=== PATIENT | female | born 1940 | race Caucasian/White ===

== ENCOUNTER → 2017-02-27 | Outpatient (CLI) | payer MEDICARE ==
--- NOTE | 2017-02-27 15:19 | MR ---
EXAMINATION TYPE: MR lumbar spine wo con DATE OF EXAM: 02/27/2017 COMPARISON: Report from prior lumbar MRI from outside institution dated 2008 HISTORY: Low back pain TECHNIQUE: Multiplanar, multisequence images of the lumbar spine were acquired. L1-L2: Left lateral extension of endplate disc complex results in right-sided foraminal encroachment, anterolateral mass effect on the thecal sac. No significant central stenosis. L2-L3: Mild facet arthropathy. No significant central stenosis or foraminal encroachment. Minimal pos terior broad-based disc bulge causes only slight anterior mass effect on the thecal sac. L3-L4: Broad-based posterior disc bulge causes minimal anterior mass effect on the thecal sac. Facet arthropathy with hypertrophy of the ligamentum flavum encroaches on the lateral recesses. Circumferen tial extension of disc material encroaches somewhat on the foramina. There is a trefoil appearance of the thecal sac. No significant central stenosis. L4-L5: Listhesis contributes to cause some mild anterior mass effect on the thecal sac, there is face t arthropathy with hypertrophy of the ligamentum flavum encroaching on the lateral recesses, foramina l encroachment is greater on the left than on the right. No significant central stenosis. L5-S1: Facet arthropathy changes with hypertrophy of the ligamentum flavum is noted encroaching somew hat on the left lateral recess. Circumferential posterior disc bulge causes minimal anterior mass eff ect on the thecal sac. Circumferential extension of disc material encroaches somewhat on the foramina . Lumbar segments are intact. No paraspinal masses are identified. Conus medullaris has a normal appe arance. Minimal anterolisthesis grade 1 L4-5. There is multilevel spondylosis. Loss of disc height an d signal greatest at L4-5, L1-2. IMPRESSION: Degenerative disc disease, multilevel facet arthropathy and foraminal encroachment as described. No s ignificant central canal stenosis.
== END | disposition home or self-care (01) ==
LOC: RADMRIMAIN 14:05
PROVIDERS: ATTEND Family Medicine
DX: M51.36 Other intervertebral disc degeneration, lumbar region (principal); M12.88 Other specific arthropathies, not elsewhere classified, other specified site
CPT/HCPCS: 72148

== ENCOUNTER 2017-09-27 06:00 | Observation (INO) | payer MEDICARE ==
[2017-09-27] MEDS ORDERED: ASPIRIN 81 MG PO STA (06:05)
[2017-09-27] MEDS ORDERED: MORPHINE SULFATE 4 MG/ML SYRINGE IV PRN (06:05)
[2017-09-27] MEDS ORDERED: NITROGLYCERIN SL TABS 0.4 MG TAB SUBLINGUAL PRN (06:05)
--- NOTE | 2017-09-27 06:14 | ED ---
General Adult HPI <Ramin Michaels Jacqueline - Last Filed: 09/27/17 08:49> - General Source: RN notes reviewed, old records reviewed <Mc Gómez - Last Filed: 09/29/17 06:58> - General Stated complaint: chest pain Time Seen by Provider: 09/27/17 06:02 - History of Present Illness Initial comments: This is a 77-year-old female to the ER for evaluation regarding significant chest pain left-sided sharp chest pain rating to her back. Patient has pain on and off for 3 days, patient states chest pain with severe tonight and decided to come to the emergency room. Patient is in route to [facility] where she went to get checked out today as opposed earlier. No shortness of breath, patient does have no chest pain at this time (Mc Gómez) - Related Data Home Medications Medication Instructions Recorded Confirmed Cyanocobalamin (Vitamin B-12) 1,000 mcg PO PC-LUNCH 09/27/17 09/27/17 [Vitamin B-12] Diltiazem HCl [Diltiazem 24Hr ER] 180 mg PO DAILY 09/27/17 09/27/17 HYDROcodone/APAP 5-325MG [[place] 0.5 tab PO HS PRN 09/27/17 09/27/17 5-325] Isosorbide Mononitrate ER [Imdur] 30 mg PO AC-BRKFST 09/27/17 09/27/17 Lisinopril [Prinivil] 20 mg PO DAILY 09/27/17 09/27/17 Lovastatin [Mevacor] 20 mg PO HS 09/27/17 09/27/17 Magnesium 200 mg PO HS 09/27/17 09/27/17 Nepafenac [Ilevro] 1 drop LEFT EYE QAM 09/27/17 09/27/17 Nitroglycerin Sl Tabs [Nitrostat] 0.4 mg SUBLINGUAL Q5M PRN 09/27/17 09/27/17 Ofloxacin 0.3% Ophth Soln [Ocuflox 1 drop LEFT EYE TID 09/27/17 09/27/17 Ophth Soln] cloNIDine HCL [Catapres] 0.1 mg PO DAILY 09/27/17 09/27/17 Previous Rx's Medication Instructions Recorded Aspirin 325 mg PO DAILY tab 09/28/17 Levofloxacin [Levaquin] 500 mg PO DAILY 10 Days #10 tab 09/28/17 Metoprolol Tartrate [Lopressor] 25 mg PO BID tab 09/28/17 guaiFENesin [Mucinex] 600 mg PO Q12HR 10 Days #20 09/28/17 tablet.er Allergies Allergy/AdvReac Type Severity Reaction Status Date / Time erythromycin base Allergy Rash/Hives Verified 09/27/17 07:37 meclizine Allergy Rash/Hives Verified 09/27/17 07:37 Review of Systems ROS Other: All systems not noted in ROS Statement are negative. <Ramin Michaels - Last Filed: 09/27/17 08:49> ROS Other: All systems not noted in ROS Statement are negative. <Mc Gómez - Last Filed: 09/29/17 06:58> ROS Statement: Those systems with pertinent positive or pertinent negative responses have been documented in the HPI. Past Medical History Past Medical History: Hyperlipidemia, Hypertension, Neurologic Disorder, Osteoarthritis (OA) Additional Past Medical History / Comment(s): pvc 's murmur lbbb cardiomyopathy atheroscleroris History of Any Multi-Drug Resistant Organisms: None Reported Past Surgical History: Adenoidectomy, Appendectomy, Cholecystectomy, Hysterectomy, Joint Replacement, Orthopedic Surgery, Tonsillectomy Additional Past Surgical History / Comment(s): lapband Past Psychological History: No Psychological Hx Reported Smoking Status: Never smoker Past Alcohol Use History: None Reported Past Drug Use History: None Reported - Past Family History Father Family Medical History: Cancer Additional Family Medical History / Comment(s): Father had lymphosarcoma Mother Family Medical History: Coronary Artery Disease (CAD), Myocardial Infarction (AR ) Additional Family Medical History / Comment(s): Mother of a AR at the age of 66yrs. <Mc Gómez - Last Filed: 09/29/17 06:58> General Exam General appearance: alert, in no apparent distress Head exam: Present: atraumatic, normocephalic, normal inspection Eye exam: Present: normal appearance, PERRL, EOMI. Absent: scleral icterus, conjunctival injection, periorbital swelling ENT exam: Present: normal exam, mucous membranes moist Neck exam: Present: normal inspection. Absent: tenderness, meningismus, lymphadenopathy Respiratory exam: Present: normal lung sounds bilaterally. Absent: respiratory distress, wheezes, rales, rhonchi, stridor Cardiovascular Exam: Present: regular rate, normal rhythm, normal heart sounds. Absent: systolic murmur, diastolic murmur, rubs, gallop, clicks GI/Abdominal exam: Present: soft, normal bowel sounds. Absent: distended, tenderness, guarding, rebound, rigid Extremities exam: Present: normal inspection, full ROM, normal capillary refill. Absent: tenderness, pedal edema, joint swelling, calf tenderness Back exam: Present: normal inspection Neurological exam: Present: alert, oriented X3, CN II-XII intact Psychiatric exam: Present: normal affect, normal mood Skin exam: Present: warm, dry, intact, normal color. Absent: rash <Mc Gómez - Last Filed: 09/29/17 06:58> Vital Signs 09/27/17 09/27/17 09/27/17 06:13 06:30 06:37 Temperature 99.3 F Pulse Rate 89 88 Respiratory 18 20 Rate Blood Pressure 210/100 190/78 165/72 O2 Sat by Pulse 97 95 Oximetry 09/27/17 09/27/17 06:40 08:00 Temperature 98.1 F Pulse Rate 74 Respiratory 20 16 Rate Blood Pressure 158/69 O2 Sat by Pulse 95 Oximetry EKG Findings - EKG Comments: EKG Findings:: EKG shows sinus rhythm rate of 84, VA 164, QRS 132, QTc 482 <Mc Gómez - Last Filed: 09/29/17 06:58> Medical Decision Making - Lab Data Result diagrams: 09/27/17 06:10 09/27/17 06:10 <Ramin Michaels - Last Filed: 09/27/17 08:49> - Lab Data Result diagrams: 09/28/17 05:24 09/28/17 05:24 <Mc Gómez - Last Filed: 09/29/17 06:58> - Medical Decision Making 77-year-old female presenting with chest pain. Patient was signed out awaiting CT angiography. Patient was admitted for serial cardiac enzymes and cardiology consult. CT angiography is negative for PE or dissection, there is right lower lobe pneumonia. Patient does admit to cough. Antibiotics ordered. Initial presentation, patient is quite hypertensive, this does resolve with medical treatment. (Ramin Michaels) Disposition Decision to Admit Reason: Admit from EC Decision Date: 09/27/17 Decision Time: 08:00 <Ramin Michaels - Last Filed: 09/27/17 08:49> <Mc Gómez - Last Filed: 09/29/17 06:58> Clinical Impression: Healthcare-associated pneumonia, Chest pain Disposition: ADMITTED IP TO THIS HOSP Condition: Stable
[2017-09-27] MEDS ORDERED: MORPHINE SULFATE 4 MG/ML SYRINGE IVP STA (06:18)
[2017-09-27] MEDS ORDERED: LABETALOL 5 MG/ML VIAL MDV IVP STA (06:18)
[2017-09-27 06:24] LABS: Basophils # (A) 0.1 k/uL (0-0.2); Basophils % (A) 1 %; Eosinophils # (A) 0.1 k/uL (0-0.7); Eosinophils % (A) 1 %; HCT 42.9 % (34.0-46.0); HGB 15.1 gm/dL (11.4-16.0); Lymphocytes # (A) 0.9 k/uL (1.0-4.8); Lymphocytes % (A) 11 %; MCH 29.7 pg (25.0-35.0); MCHC 35.2 g/dL (31.0-37.0); MCV 84.2 fL (80.0-100.0); Mean Platelet Volume 6.7; Monocytes # (A) 0.6 k/uL (0-1.0); Monocytes % (A) 7 %; Neutrophils # (A) 6.6 k/uL (1.3-7.7); Neutrophils % (A) 78 %; Platelet Count 260 k/uL (150-450); RBC 5.09 m/uL (3.80-5.40); RDW 12.8 % (11.5-15.5); WBC 8.5 k/uL (3.8-10.6)
[2017-09-27] MEDS ORDERED: ONDANSETRON 4 MG/2 ML VIAL IVP STA (06:26)
[2017-09-27] MEDS ORDERED: RX INFO: IV CONTRAST WAS GIVEN 1 EACH MISC MISCELLANE PRN (06:31)
[2017-09-27 06:32] LABS: D-Dimer 0.62 mg/L FEU (<0.60)
[2017-09-27 06:36] LABS: ALT 19 U/L (9-52); AST 23 U/L (14-36); Alkaline Phosphatase 72 U/L (38-126); Anion Gap 10 mmol/L; Blood Urea Nitrogen 16 mg/dL (7-17); Calcium 9.2 mg/dL (8.4-10.2); Carbon Dioxide 24 mmol/L (22-30); Chloride 104 mmol/L (98-107); Glucose 117 mg/dL (74-99); Lipase 82 U/L (23-300); Magnesium 1.8 mg/dL (1.6-2.3); Potassium 4.2 mmol/L (3.5-5.1); Sodium 138 mmol/L (137-145); Total Bilirubin 0.6 mg/dL (0.2-1.3); Total Protein 6.5 g/dL (6.3-8.2)
[2017-09-27 06:37] LABS: INR 1.1 (<1.2); Partial Thromboplastin Time 22.6 sec (22.0-30.0); Prothrombin Time 10.3 sec (9.0-12.0)
[2017-09-27 07:00] LABS: Creatine Kinase MB 1.2 ng/mL (0.0-2.4); Troponin I 0.032 ng/mL (0.000-0.034)
--- NOTE | 2017-09-27 07:42 | CT ---
EXAMINATION TYPE: CT angio chest DATE OF EXAM: 09/27/2017 COMPARISON: 01/05/2010 HISTORY: Chest pain CT DLP: 326.6 mGycm. Automated Exposure Control for Dose Reduction was Utilized. CONTRAST: CTA scan of the thorax is performed with IV Contrast, patient injected with 78 mL of Omnipaque 350, p ulmonary embolism protocol. MIP Images are created on CT scanner and reviewed. FINDINGS: LUNGS: There are scattered areas of subsegmental atelectasis and multiple other nodular densities wit hin the posterior basilar segment of the right lower lobe suspicious for early infectious etiology melissa ch as pneumonia. The lungs are grossly clear, there is no concerning parenchymal mass or nodule ident ified. There is no pleural effusion or pneumothorax seen. The tracheobronchial tree is patent. MEDIASTINUM: There is satisfactory enhancement of the pulmonary artery and its branches, there is no CT evidence for pulmonary embolism. Mediastinal adenopathy is seen within the right hilum measuring 1 .2 cm, within the subcarinal space measuring 1.5 cm, and within the, paratracheal space measuring 1.2 cm. No cardiomegaly or pericardial effusion is seen. Normal variant branching vasculature are seen a s the left vertebral artery has a direct origin from the aortic arch. Moderate three-vessel coronary artery calcifications are present. OTHER: Gastric lap band is noted in the upper abdomen, bile duct appears prominent although within no rmal limits given the patient's age. Moderate multilevel degenerative changes of the thoracic spine a re seen. IMPRESSION: 1. No evidence of pulmonary embolism. 2. Clustered nodular densities within the posterior basilar segment of the right lower lobe are most suspicious for developing pneumonia although multiple pulmonary nodules are possible they are less li alison. Follow-up after treatment could be performed to exclude pulmonary nodule. Associated mediastina l adenopathy is likely reactive and only slightly more pronounced than on the prior exam of 2009.
[2017-09-27] MEDS ORDERED: LEVOFLOXACIN 500MG-D5W PMX 500 MG in DEXTROSE/WATER 1 100ML.BAG IVPB STA (08:27)
--- NOTE | 2017-09-27 09:59 | P.CRDCN ---
History of Present Illness Consult date: 09/27/17 History of present illness: This is a 77-year-old female with history of hypertension and hypercholesterolemia who has been suffering from sore throat and cough for about a couple weeks. Patient came to the hospital because of persistent cough and also feeling hot. She also complains of some chest heaviness in the middle of the chest. She claims that heaviness did not change with cough or inspiration. She took couple of nitroglycerin at home without much relief. Finally patient came to the emergency room. Her d-dimer was elevated. Patient had a computed tomography scan of the chest which was negative for pulmonary emboli or dissection. However, there was findings consistent with possible pneumonia. Patient is admitted and is being treated for pneumonia with antibiotics. At the time of my examination patient seemed to be feeling better. Denies any chest pain at this time. Patient recently had a stress test and echocardiogram in our office and we're in the process of getting copies of the. I will also get a chest x-ray. If pneumonia is confirmed, I'll continue with antibiotic therapy. Probably no further cardiac workup at this time unless patient has recurrence of symptoms. Past Medical History Past Medical History: Hyperlipidemia, Hypertension, Neurologic Disorder, Osteoarthritis (OA) Additional Past Medical History / Comment(s): pvc 's murmur lbbb cardiomyopathy atheroscleroris History of Any Multi-Drug Resistant Organisms: None Reported Past Surgical History: Adenoidectomy, Appendectomy, Cholecystectomy, Hysterectomy, Joint Replacement, Orthopedic Surgery, Tonsillectomy Additional Past Surgical History / Comment(s): lapband Past Psychological History: No Psychological Hx Reported Smoking Status: Never smoker Past Alcohol Use History: None Reported Past Drug Use History: None Reported Medications and Allergies Home Medications Medication Instructions Recorded Confirmed Type Cyanocobalamin (Vitamin B-12) 1,000 mcg PO PC-LUNCH 09/27/17 09/27/17 History [Vitamin B-12] Diltiazem HCl [Diltiazem 24Hr ER] 180 mg PO DAILY 09/27/17 09/27/17 History HYDROcodone/APAP 5-325MG [[place] 0.5 tab PO HS PRN 09/27/17 09/27/17 History 5-325] Isosorbide Mononitrate ER [Imdur] 30 mg PO AC-BRKFST 09/27/17 09/27/17 History Lisinopril [Prinivil] 20 mg PO DAILY 09/27/17 09/27/17 History Lovastatin [Mevacor] 20 mg PO HS 09/27/17 09/27/17 History Magnesium 200 mg PO HS 09/27/17 09/27/17 History Nepafenac [Ilevro] 1 drop LEFT EYE QAM 09/27/17 09/27/17 History Nitroglycerin Sl Tabs [Nitrostat] 0.4 mg SUBLINGUAL Q5M PRN 09/27/17 09/27/17 History Ofloxacin 0.3% Ophth Soln [Ocuflox 1 drop LEFT EYE TID 09/27/17 09/27/17 History Ophth Soln] cloNIDine HCL [Catapres] 0.1 mg PO DAILY 09/27/17 09/27/17 History Allergies Allergy/AdvReac Type Severity Reaction Status Date / Time erythromycin base Allergy Rash/Hives Verified 09/27/17 07:37 meclizine Allergy Rash/Hives Verified 09/27/17 07:37 Physical Exam Vitals: Vital Signs Temp Pulse Resp BP BP Pulse Ox 09/27/17 09:01 98.2 F 142/58 91 L 09/27/17 08:00 98.1 F 74 16 158/69 95 09/27/17 06:40 20 09/27/17 06:37 165/72 09/27/17 06:30 88 20 190/78 95 09/27/17 06:13 99.3 F 89 18 210/100 97 Intake and Output 09/26/17 09/27/17 09/27/17 22:59 06:59 14:59 Other: Weight 77.111 kg GENERAL EXAM: Patient is alert and oriented and doesn't appear to be in any acute distress HEENT: Normocephalic. Normal reaction of pupils, equal size, normal range of extraocular motion. No erythema or exudates in the throat. NECK: No masses, no nuchal rigidity. CHEST: No chest wall deformity. LUNGS: Equal air entry with no crackles or wheeze. HEART: S1 and S2 normal with no audible mumurs or gallops. Regular rhythm, ABDOMEN: No hepatosplenomegaly, normal bowel sounds, no guarding or rigidity. SKIN: No rashes CENTRAL NERVOUS SYSTEM: No focal deficits. EXTREMITIES: No cyanosis, clubbing or edema. Results 09/27/17 06:10 09/27/17 06:10 Cardiac Enzymes 09/27/17 09/27/17 Range/Units 06:10 06:10 AST 23 (14-36) U/L CK-MB (CK-2) 1.2 (0.0-2.4) ng/mL Troponin I 0.032 (0.000-0.034) ng/mL Coagulation 09/27/17 Range/Units 06:10 PT 10.3 (9.0-12.0) sec APTT 22.6 (22.0-30.0) sec CBC 09/27/17 Range/Units 06:10 WBC 8.5 (3.8-10.6) k/uL RBC 5.09 (3.80-5.40) m/uL Hgb 15.1 (11.4-16.0) gm/dL Hct 42.9 (34.0-46.0) % Plt Count 260 (150-450) k/uL Comprehensive Metabolic Panel 09/27/17 Range/Units 06:10 Sodium 138 (137-145) mmol/L Potassium 4.2 (3.5-5.1) mmol/L Chloride 104 (98-107) mmol/L Carbon Dioxide 24 (22-30) mmol/L BUN 16 (7-17) mg/dL Creatinine 0.60 (0.52-1.04) mg/dL Glucose 117 H (74-99) mg/dL Calcium 9.2 (8.4-10.2) mg/dL AST 23 (14-36) U/L ALT 19 (9-52) U/L Alkaline Phosphatase 72 (38-126) U/L Total Protein 6.5 (6.3-8.2) g/dL Albumin 4.0 (3.5-5.0) g/dL Current Medications Generic Name Dose Route Start Last Admin Trade Name Freq PRN Reason Stop Dose Admin Aspirin 325 mg 09/28/17 09:00 Aspirin PO DAILY [facility] Atorvastatin Calcium 80 mg 09/27/17 09:00 Lipitor PO DAILY [facility] Levofloxacin 500 mg/ IV 100 mls @ 100 mls/hr 09/28/17 09:00 Solution IVPB Q24H [facility] Metoprolol Tartrate 25 mg 09/27/17 09:00 Lopressor PO BID [facility] Miscellaneous Information 1 each 09/27/17 06:31 Rx Info: Iv Contrast Was Given MISCELLANE 09/29/17 06:31 DAILY PRN Per Protocol Morphine Sulfate 4 mg 09/27/17 06:05 Morphine Sulfate (Inj) IV Q5M PRN Chest Pain Nitroglycerin 0.4 mg 09/27/17 06:05 Nitrostat SUBLINGUAL Q5M PRN Chest Pain Intake and Output 09/26/17 09/27/17 09/27/17 22:59 06:59 14:59 Other: Weight 77.111 kg 09/27/17 06:10 09/27/17 06:10 EKG Interpretations (text) Sinus rhythm with left bundle-branch block pattern Assessment and Plan (1) Left bundle branch block (LBBB) Current Visit: Yes Status: Acute Code(s): I44.7 - LEFT BUNDLE-BRANCH BLOCK, UNSPECIFIED SNOMED Code(s): 34412942 (2) Chest pain Current Visit: Yes Status: Acute Code(s): R07.9 - CHEST PAIN, UNSPECIFIED SNOMED Code(s): 63172888 (3) Healthcare-associated pneumonia Current Visit: Yes Status: Acute Code(s): J18.9 - PNEUMONIA, UNSPECIFIED ORGANISM SNOMED Code(s): 803527312 Plan: I'll continue with antibiotic therapy. I'll get a chest x-ray. I'll get the recent cardiac testing done in our office. Further recommendations depend upon clinical course.
[2017-09-27] MEDS ORDERED: cloNIDine HCL 0.1 MG TAB PO SCH ×2 (11:00→14:51)
[2017-09-27] MEDS: OFLOXACIN 0.3% OPHTH DROPS 5 ML BOTTLE LEFT EYE SCH ×3 (11:46→19:56)
[2017-09-27] MEDS: DILTIAZEM CD 180 MG CAP.ER.24H PO SCH (12:07)
[2017-09-27] MEDS: LISINOPRIL 20 MG TAB PO SCH (12:07)
[2017-09-27] MEDS: ISOSORBIDE MONONITRATE ER 30 MG TAB.ER.24H PO SCH (12:07)
[2017-09-27] MEDS: METOPROLOL TARTRATE 25 MG TAB PO SCH ×3 (12:13→20:02)
[2017-09-27] MEDS ORDERED: CYANOCOBALAMIN 500 MCG TAB PO SCH (13:30)
[2017-09-27 13:48] LABS: Troponin I 0.037 ng/mL (0.000-0.034)
[2017-09-27] MEDS: ATORVASTATIN 80 MG TAB PO SCH (14:23)
--- NOTE | 2017-09-27 15:05 | P.HPIM ---
History of Present Illness H&P Date: 09/27/17 Chief Complaint: Chest pressure and cough This is a 77-year-old female, patient of Dr. Fernandez. She has a known past medical history of hypertension, hyperlipidemia, cardiomyopathy, left bundle branch block, PVCs and heart murmur. She reports about a 4 day history of productive cough. She states that her cough is showing some improvement. However, this morning she started to have a lot of chest pressure in the center of her chest. It did not radiate. But she did become nauseous and had some sweating. She took 2 nitro and had some relief of her symptoms. The pain did come back. She presented to the emergency room for further evaluation and treatment. She had elevated blood pressure with a 210/100. EKG had shown normal sinus rhythm with sinus arrhythmia. First troponin was negative second troponin minimally elevated at 0.037. She did have elevated d-dimer CTA of the chest was negative for PE. Did show clustered nodular densities within the posterior basilar segment of the right lower lobe are most suspicious of a developing pneumonia although multiple pulmonary nodules are possible they're less likely. Follow-up after treatment could be performed to exclude pulmonary nodule. Associated mediastinal adenopathy is likely reactive and only slightly more pronounced than prior exam of 2009. Patient was started on IV Levaquin. Her last stress test was about 5 months ago and at that time she had an echo completed outpatient [facility]. Cardiology is following and they are reviewing these results. Patient reports her last heart catheterization was in 2009. She does have a prior history of smoking for only about 4 years. Pulmonary service will be consulted Review of Systems Please refer to HPI otherwise unremarkable Past Medical History Past Medical History: Hyperlipidemia, Hypertension, Neurologic Disorder, Osteoarthritis (OA) Additional Past Medical History / Comment(s): pvc 's murmur lbbb cardiomyopathy atheroscleroris History of Any Multi-Drug Resistant Organisms: None Reported Past Surgical History: Adenoidectomy, Appendectomy, Cholecystectomy, Hysterectomy, Joint Replacement, Orthopedic Surgery, Tonsillectomy Additional Past Surgical History / Comment(s): lapband Past Anesthesia/Blood Transfusion Reactions: Postoperative Nausea & Vomiting ( PONV) Past Psychological History: No Psychological Hx Reported Smoking Status: Never smoker Past Alcohol Use History: None Reported Past Drug Use History: None Reported - Past Family History Father Family Medical History: Cancer Additional Family Medical History / Comment(s): Father had lymphosarcoma Mother Family Medical History: Coronary Artery Disease (CAD), Myocardial Infarction (HI ) Additional Family Medical History / Comment(s): Mother of a HI at the age of 66yrs. Medications and Allergies Home Medications Medication Instructions Recorded Confirmed Type Cyanocobalamin (Vitamin B-12) 1,000 mcg PO PC-LUNCH 09/27/17 09/27/17 History [Vitamin B-12] Diltiazem HCl [Diltiazem 24Hr ER] 180 mg PO DAILY 09/27/17 09/27/17 History HYDROcodone/APAP 5-325MG [[place] 0.5 tab PO HS PRN 09/27/17 09/27/17 History 5-325] Isosorbide Mononitrate ER [Imdur] 30 mg PO AC-BRKFST 09/27/17 09/27/17 History Lisinopril [Prinivil] 20 mg PO DAILY 09/27/17 09/27/17 History Lovastatin [Mevacor] 20 mg PO HS 09/27/17 09/27/17 History Magnesium 200 mg PO HS 09/27/17 09/27/17 History Nepafenac [Ilevro] 1 drop LEFT EYE QAM 09/27/17 09/27/17 History Nitroglycerin Sl Tabs [Nitrostat] 0.4 mg SUBLINGUAL Q5M PRN 09/27/17 09/27/17 History Ofloxacin 0.3% Ophth Soln [Ocuflox 1 drop LEFT EYE TID 09/27/17 09/27/17 History Ophth Soln] cloNIDine HCL [Catapres] 0.1 mg PO DAILY 09/27/17 09/27/17 History Allergies Allergy/AdvReac Type Severity Reaction Status Date / Time erythromycin base Allergy Rash/Hives Verified 09/27/17 07:37 meclizine Allergy Rash/Hives Verified 09/27/17 07:37 Physical Exam Vitals: Vital Signs Temp Pulse Pulse Resp BP BP BP 09/27/17 11:52 99.3 F 73 16 188/63 09/27/17 09:01 98.2 F 142/58 09/27/17 08:00 98.1 F 74 16 158/69 09/27/17 06:40 20 09/27/17 06:37 165/72 09/27/17 06:30 88 20 190/78 09/27/17 06:13 99.3 F 89 18 210/100 Pulse Ox 09/27/17 11:52 93 L 09/27/17 09:01 91 L 09/27/17 08:00 95 09/27/17 06:40 09/27/17 06:37 09/27/17 06:30 95 09/27/17 06:13 97 Intake and Output 09/26/17 09/27/17 09/27/17 22:59 06:59 14:59 Other: Weight 77.111 kg Head normocephalic Neck supple Lungs diminished with a few coarse breath sounds. No wheezing. No tenderness with palpation of the chest wall Heart regular rate and rhythm S1-S2, no rub or gallop Abdomen is soft nontender nondistended positive bowel sounds no hepatosplenomegaly Extremities no edema Neuro alert and orientated to 3 Results CBC & Chem 7: 09/27/17 06:10 09/27/17 06:10 Labs: Abnormal Lab Results - Last 24 Hours (Table) 09/27/17 09/27/17 09/27/17 Range/Units 06:10 06:10 06:10 Lymphocytes # 0.9 L (1.0-4.8) k/uL D-Dimer 0.62 H (<0.60) mg/L FEU Glucose 117 H (74-99) mg/dL Troponin I (0.000-0.034) ng/mL 09/27/17 Range/Units 12:21 Lymphocytes # (1.0-4.8) k/uL D-Dimer (<0.60) mg/L FEU Glucose (74-99) mg/dL Troponin I 0.037 H* (0.000-0.034) ng/mL Thrombosis Risk Factor Assmnt - Choose All That Apply Any of the Below Risk Factors Present?: Yes Each Factor Represents 1 point: Obesity (BMI >25) Other Risk Factors: Yes Each Risk Factor Represents 3 Points: Age 75 years or older Other congenital or acquired thrombophilia - If yes, enter type in comment: No Thrombosis Risk Factor Assessment Total Risk Factor Score: 4 Thrombosis Risk Factor Assessment Level: Moderate Risk Assessment and Plan Assessment: 1. Chest pain: Minimal elevation and second troponin of 0.037. Case discussed with cardiology. They did not fill it was related to an acute coronary syndrome. EKG showing a normal sinus rhythm with sinus arrhythmia. Third troponin pending. CTA was negative for PE. Chest pain symptoms could be related to her cough from her pneumonia. Continue to monitor. Cardiology is reviewing the stress test and echo that was performed about 5 months ago outpatient 2. Community-acquired Pneumonia: CT chest shows clustered nodular densities within the posterior basilar segment of the right lower lobe possibly related to pneumonia or a pulmonary nodule. Consult pulmonary service. Patient's been started on Levaquin 500 mg IV daily in the emergency room. Check sputum culture 3. Hypertensive urgency in the emergency room with a blood pressure of 210/ 100. Patient did give 1 dose of IV labetalol in the ER. Case discussed with cardiology [facility]. They have increased her Catapres to 0.2 mg daily. Resume her other home BP meds 4. Hyperlipidemia continue statin 5. History of cardiomyopathy. Followed by cardiology 6. Osteoarthritis GI prophylaxis Pepcid and DVT prophylaxis subcu heparin Time with Patient: Greater than 30 (Greater than 50% of the total time spent in counseling and coordination of care.I performed an examination of the patient and discussed their management with the physician Community Service Specialist. I have reviewed the Physician Community Service Specialist's notes and agree with the documented findings and plan of care)
--- NOTE | 2017-09-27 15:06 | XR ---
EXAMINATION TYPE: XR chest 2V DATE OF EXAM: 09/27/2017 COMPARISON: 01/05/2010 HISTORY: Shortness of breath and productive cough TECHNIQUE: Frontal and lateral views of the chest are obtained. FINDINGS: Mild patchy opacity at the right lung base favored to represent atelectasis is no focal op acity is seen on the lateral image, however this could represent early pneumonia in this patient with shortness of breath and productive cough. There is no pleural effusion or pneumothorax. The cardiac silhouette size is within normal limits. The osseous structures are intact. There is generalized o sseous demineralization. IMPRESSION: New patchy right basilar opacity favored to represent atelectasis although this could re present early developing pneumonia in this patient with shortness of breath and productive cough.
[2017-09-27] MEDS: ILEVRO LEFT EYE SCH (16:20)
[2017-09-27 19:23] LABS: Creatine Kinase MB 2.1 ng/mL (0.0-2.4); Troponin I 0.034 ng/mL (0.000-0.034)
[2017-09-27] MEDS: HEPARIN SODIUM,PORCINE 5,000 UNIT/ML 1 ML VIAL SQ SCH (19:55)
[2017-09-27] MEDS ORDERED: HYDROcodone/APAP 5-325MG 1 EACH TAB PO PRN (21:00)
[2017-09-27] MEDS ORDERED: MAGNESIUM OXIDE 400 MG TAB PO SCH (21:00)
[2017-09-27] MEDS ORDERED: NON-FORMULARY DRUG (Lovastatin 20 MG) PO SCH (21:00)
[2017-09-27] MEDS: guaiFENesin SYRUP 100MG/5ML 200 MG/10 ML CUP PO PRN (21:22)
[2017-09-27] MEDS ORDERED: ACETAMINOPHEN TAB 325 MG TAB PO PRN (23:54)
[2017-09-28 05:56] LABS: Basophils % (A) 0 %; Eosinophils # (A) 0.1 k/uL (0-0.7); Eosinophils % (A) 2 %; HCT 36.9 % (34.0-46.0); Lymphocytes # (A) 1.6 k/uL (1.0-4.8); Lymphocytes % (A) 33 %; MCH 28.2 pg (25.0-35.0); MCHC 32.5 g/dL (31.0-37.0); MCV 86.6 fL (80.0-100.0); Mean Platelet Volume 7.2; Monocytes # (A) 0.6 k/uL (0-1.0); Monocytes % (A) 12 %; Neutrophils # (A) 2.4 k/uL (1.3-7.7); Neutrophils % (A) 50 %; Platelet Count 224 k/uL (150-450); RBC 4.27 m/uL (3.80-5.40); RDW 13.3 % (11.5-15.5); WBC 4.9 k/uL (3.8-10.6)
[2017-09-28 06:08] LABS: Albumin 2.9 g/dL (3.5-5.0); Calcium 8.6 mg/dL (8.4-10.2); Potassium 4.3 mmol/L (3.5-5.1); Total Bilirubin 0.3 mg/dL (0.2-1.3); Total Protein 5.1 g/dL (6.3-8.2)
[2017-09-28] MEDS: DILTIAZEM CD 180 MG CAP.ER.24H PO SCH (08:29)
[2017-09-28] MEDS: ATORVASTATIN 80 MG TAB PO SCH (08:29)
[2017-09-28] MEDS: LISINOPRIL 20 MG TAB PO SCH (08:29)
[2017-09-28] MEDS: ILEVRO LEFT EYE SCH (08:29)
[2017-09-28] MEDS: ISOSORBIDE MONONITRATE ER 30 MG TAB.ER.24H PO SCH (08:30)
[2017-09-28] MEDS: HEPARIN SODIUM,PORCINE 5,000 UNIT/ML 1 ML VIAL SQ SCH (08:30)
[2017-09-28] MEDS: OFLOXACIN 0.3% OPHTH DROPS 5 ML BOTTLE LEFT EYE SCH (08:31)
[2017-09-28] MEDS: guaiFENesin SYRUP 100MG/5ML 200 MG/10 ML CUP PO PRN (08:31)
[2017-09-28] MEDS: METOPROLOL TARTRATE 25 MG TAB PO SCH (08:58)
[2017-09-28] MEDS ORDERED: LEVOFLOXACIN 500MG-D5W PMX 500 MG in DEXTROSE/WATER 1 100ML.BAG IVPB SCH (09:00)
[2017-09-28] MEDS ORDERED: ASPIRIN 325 MG TAB PO SCH (09:00)
[2017-09-28] MEDS ORDERED: FAMOTIDINE 20 MG TAB PO SCH (09:00)
--- NOTE | 2017-09-28 12:14 | P.DS ---
Providers Date of admission: 09/27/17 06:05 Expected date of discharge: 09/28/17 Attending physician: Wally Matson Consults: 09/27/17 06:05 Consult Physician Urgent Consulting Provider: Liang Aldana Consult Reason/Comments: cp Do you want consulting provider notified?: Yes 09/27/17 14:57 Consult Physician Routine Consulting Provider: Aliyah Townsend Consult Reason/Comments: pulmonary nodules Do you want consulting provider notified?: Yes Primary care physician: Minerva Fernandez [facility] Course: Diagnoses on discharge: 1. Chest pain: Minimal elevation and second troponin of 0.037. Case discussed with cardiology. They did not fill it was related to an acute coronary syndrome. EKG showing a normal sinus rhythm with sinus arrhythmia. Third troponin pending. CTA was negative for PE. Chest pain symptoms could be related to her cough from her pneumonia. Continue to monitor. Cardiology is reviewing the stress test and echo that was performed about 5 months ago outpatient. Patient was evaluated by cardiology and cleared for discharge. 2. Community-acquired Pneumonia: CT chest shows clustered nodular densities within the posterior basilar segment of the right lower lobe possibly related to pneumonia or a pulmonary nodule. Consult pulmonary service. Patient's been started on Levaquin 500 mg IV daily in the emergency room. Check sputum culture 3. Hypertensive urgency in the emergency room with a blood pressure of 210/ 100. Patient did give 1 dose of IV labetalol in the ER. Case discussed with cardiology [employer]. They have increased her Catapres to 0.2 mg daily. Resume her other home BP meds 4. Hyperlipidemia continue statin 5. History of cardiomyopathy. Followed by cardiology 6. Osteoarthritis Hospital Course: This is a 77-year-old female, patient of Dr. Fernandez. She has a known past medical history of hypertension, hyperlipidemia, cardiomyopathy, left bundle branch block, PVCs and heart murmur. She reports about a 4 day history of productive cough. She states that her cough is showing some improvement. However, this morning she started to have a lot of chest pressure in the center of her chest. It did not radiate. But she did become nauseous and had some sweating. She took 2 nitro and had some relief of her symptoms. The pain did come back. She presented to the emergency room for further evaluation and treatment. She had elevated blood pressure with a 210/100. EKG had shown normal sinus rhythm with sinus arrhythmia. First troponin was negative second troponin minimally elevated at 0.037. She did have elevated d-dimer CTA of the chest was negative for PE. Did show clustered nodular densities within the posterior basilar segment of the right lower lobe are most suspicious of a developing pneumonia although multiple pulmonary nodules are possible they're less likely. Follow-up after treatment could be performed to exclude pulmonary nodule. Associated mediastinal adenopathy is likely reactive and only slightly more pronounced than prior exam of 2010. Patient was started on IV Levaquin. Her last stress test was about 5 months ago and at that time she had an echo completed outpatient [facility]. Cardiology is following and they are reviewing these results. Patient reports her last heart catheterization was in 2009. She does have a prior history of smoking for only about 4 years. Pulmonary service will be consulted. On 09/28/2017 patient was seen and examined she is feeling better she is complaining of occasional cough without sputum production otherwise she denies any complaints there is no new episodes of chest pain. She was seen by cardiology and was cleared to be discharged home. Patient was counseled to stay to receive IV antibiotic for her pneumonia, however she was insisting on going home, she was given a prescription for Levaquin 500 milligram once daily for 10 days, she was also given the Mucinex 600 mg twice daily for 10 days. She was told to follow-up with her primary care physician Dr. Fernandez within one week. During this admission patient had elevated blood pressure readings, metoprolol tartrate 25 mg twice daily was added to her regimen, blood pressure at the time of discharge was well controlled at 119/56. Patient also had aspirin 325 mg once daily added to her regimen. Patient Condition at Discharge: Stable Plan - Discharge Summary Discharge Rx Participant: No New Discharge Prescriptions: New Aspirin 325 mg PO DAILY tab guaiFENesin [Mucinex] 600 mg PO Q12HR 10 Days #20 tablet.er Levofloxacin [Levaquin] 500 mg PO DAILY 10 Days #10 tab Metoprolol Tartrate [Lopressor] 25 mg PO BID tab Continue Nitroglycerin Sl Tabs [Nitrostat] 0.4 mg SUBLINGUAL Q5M PRN PRN Reason: Chest Pain HYDROcodone/APAP 5-325MG [[place] 5-325] 0.5 tab PO HS PRN PRN Reason: Pain Cyanocobalamin (Vitamin B-12) [Vitamin B-12] 1,000 mcg PO PC-LUNCH Lovastatin [Mevacor] 20 mg PO HS Lisinopril [Prinivil] 20 mg PO DAILY Isosorbide Mononitrate ER [Imdur] 30 mg PO AC-BRKFST cloNIDine HCL [Catapres] 0.1 mg PO DAILY Nepafenac [Ilevro] 1 drop LEFT EYE QAM Diltiazem HCl [Diltiazem 24Hr ER] 180 mg PO DAILY Ofloxacin 0.3% Ophth Soln [Ocuflox Ophth Soln] 1 drop LEFT EYE TID Magnesium 200 mg PO HS Discharge Medication List Cyanocobalamin (Vitamin B-12) [Vitamin B-12] 1,000 mcg PO PC-LUNCH 09/27/17 [ History] Diltiazem HCl [Diltiazem 24Hr ER] 180 mg PO DAILY 09/27/17 [History] HYDROcodone/APAP 5-325MG [[place] 5-325] 0.5 tab PO HS PRN 09/27/17 [History] Isosorbide Mononitrate ER [Imdur] 30 mg PO AC-BRKFST 09/27/17 [History] Lisinopril [Prinivil] 20 mg PO DAILY 09/27/17 [History] Lovastatin [Mevacor] 20 mg PO HS 09/27/17 [History] Magnesium 200 mg PO HS 09/27/17 [History] Nepafenac [Ilevro] 1 drop LEFT EYE QAM 09/27/17 [History] Nitroglycerin Sl Tabs [Nitrostat] 0.4 mg SUBLINGUAL Q5M PRN 09/27/17 [History] Ofloxacin 0.3% Ophth Soln [Ocuflox Ophth Soln] 1 drop LEFT EYE TID 09/27/17 [ History] cloNIDine HCL [Catapres] 0.1 mg PO DAILY 09/27/17 [History] Aspirin 325 mg PO DAILY tab 09/28/17 [Rx] Levofloxacin [Levaquin] 500 mg PO DAILY 10 Days #10 tab 09/28/17 [Rx] Metoprolol Tartrate [Lopressor] 25 mg PO BID tab 09/28/17 [Rx] guaiFENesin [Mucinex] 600 mg PO Q12HR 10 Days #20 tablet.er 09/28/17 [Rx] Follow up Appointment(s)/Referral(s): Minerva Fernandez MD [Primary Care Provider] - 1-2 days
[2017-09-28 12:31] VITALS: BP 107/53; PULSE 57; RESP 18; TEMP 97.9
--- NOTE | 2017-09-30 13:13 | ECHOF ---
Referral Reason:Left bundle branch block pattern twelve-lead ECG MEASUREMENTS -------- HEIGHT: 152.4 cm WEIGHT: 77.1 kg BP: 101/46 IVSd: 1.0 cm (0.6 - 1.1) LVIDd: 3.8 cm (3.9 - 5.3) LVPWd: 1.2 cm (0.6 - 1.1) IVSs: 1.6 cm LVIDs: 2.4 cm LVPWs: 1.5 cm LAESV Index (A-L): 23.00 ml/m Ao Diam: 3.4 cm (2.0 - 3.7) AV Cusp: 1.5 cm (1.5 - 2.6) LA Diam: 4.0 cm (2.7 - 3.8) MV EXCURSION: 14.317 mm (> 18.000) MV EF SLOPE: 69 mm/s (70 - 150) EPSS: 0.0 cm MV E Blaine: 0.74 m/s MV DecT: 320 ms MV A [place]: 1.18 m/s MV E/A Ratio: 0.63 AV maxP.35 mmHg AV meanP.92 mmHg RAP: 5.00 mmHg RVSP: 22.30 mmHg FINDINGS -------- Sinus rhythm. This was a technically good study. The left ventricular size is normal. There is mild concentric left ventricular hypertrophy. Overa ll left ventricular systolic function is normal with, an EF between 55 - 60 %. The right ventricle is normal in size and function. The left atrium is normal in size. The right atrium is normal in size. Aortic valve is trileaflet and is moderately thickened. There is mild aortic stenosis present. Pe ak/mean gradient across the Aortic Valve is 19.35mmHg / 11.92mmHg. The mitral valve leaflets are mildly thickened. Mild mitral regurgitation is present. Mild tricuspid regurgitation present. The right ventricular systolic pressure, as measured by Doppl er, is 22.30mmHg. Pulmonic valve appears structurally normal. The aortic root size is normal. Normal inferior vena cava with normal inspiratory collapse consistent with estimated right atrial pre ssure of 5 mmHg. The pericardium is normal. CONCLUSIONS -------- 1. Sinus rhythm. 2. This was a technically good study. 3. The left ventricular size is normal. 4. There is mild concentric left ventricular hypertrophy. 5. Overall left ventricular systolic function is normal with, an EF between 55 - 60 %. 6. The right ventricle is normal in size and function. 7. The left atrium is normal in size. 8. The right atrium is normal in size. 9. Aortic valve is trileaflet and is moderately thickened. 10. There is mild aortic stenosis present. 11. Peak/mean gradient across the Aortic Valve is 19.35mmHg / 11.92mmHg. 12. The mitral valve leaflets are mildly thickened. 13. Mild mitral regurgitation is present. 14. Mild tricuspid regurgitation present. 15. The right ventricular systolic pressure, as measured by Doppler, is 22.30mmHg. 16. Pulmonic valve appears structurally normal. 17. The aortic root size is normal. 18. Normal inferior vena cava with normal inspiratory collapse consistent with estimated right atrial pressure of 5 mmHg. 19. The pericardium is normal. LEARNING SUPPORT SPECIALIST: Yumiko Peñaloza RDCS
== END 2017-09-28 13:28 | disposition home or self-care (01) ==
LOC: EC 06:00 → 3OBS 06:05
PROVIDERS: ADMIT Internal Medicine; ATTEND Internal Medicine
DX: R07.89 Other chest pain (principal); J18.9 Pneumonia, unspecified organism; I16.0 Hypertensive urgency; I10 Essential (primary) hypertension; R79.89 Other specified abnormal findings of blood chemistry; E78.5 Hyperlipidemia, unspecified; I44.7 Left bundle-branch block, unspecified; I42.9 Cardiomyopathy, unspecified; M19.90 Unspecified osteoarthritis, unspecified site; R01.1 Cardiac murmur, unspecified; I49.3 Ventricular premature depolarization; E66.9 Obesity, unspecified; Z68.25 Body mass index [BMI] 25.0-25.9, adult; Z79.899 Other long term (current) drug therapy; Z88.1 Allergy status to other antibiotic agents; Z88.8 Allergy status to other drugs, medicaments and biological substances; Z98.84 Bariatric surgery status; Z87.891 Personal history of nicotine dependence; Z80.7 Family history of other malignant neoplasms of lymphoid, hematopoietic and related tissues; Z82.49 Family history of ischemic heart disease and other diseases of the circulatory system
CPT/HCPCS: 99285 ×2; 96375 ×4; 96365; 96372 ×2; 36415; 93005; 93306; 85379; 83880; 80061; 80053 ×2; 82550; 82553; 83690; 83735; 84484; 85025 ×2; 85610; 85730; 71046; 71275; G0378 ×2; J2270; J1644 ×2; Q9967; J2405; J1956 ×2

== ENCOUNTER 2017-09-30 08:51 | Emergency (ER) | payer MEDICARE ==
[2017-09-30 09:47] LABS: Basophils % (A) 1 %; Eosinophils # (A) 0.1 k/uL (0-0.7); Eosinophils % (A) 2 %; HCT 40.6 % (34.0-46.0); HGB 13.3 gm/dL (11.4-16.0); Lymphocytes # (A) 1.2 k/uL (1.0-4.8); Lymphocytes % (A) 24 %; MCH 27.8 pg (25.0-35.0); MCHC 32.7 g/dL (31.0-37.0); MCV 85.1 fL (80.0-100.0); Monocytes # (A) 0.3 k/uL (0-1.0); Monocytes % (A) 6 %; Neutrophils # (A) 3.4 k/uL (1.3-7.7); Neutrophils % (A) 65 %; Platelet Count 231 k/uL (150-450); RBC 4.77 m/uL (3.80-5.40); RDW 13.1 % (11.5-15.5); WBC 5.3 k/uL (3.8-10.6)
--- NOTE | 2017-09-30 09:56 | XR ---
EXAMINATION TYPE: XR chest 2V DATE OF EXAM: 09/30/2017 COMPARISON: 09/27/2017 HISTORY: Pneumonia and shortness of breath TECHNIQUE: Frontal and lateral views of the chest are obtained. FINDINGS: There is improved aeration of the lungs in the right basilar opacity has resolved in the i nterim. There is no focal air space opacity, pleural effusion, or pneumothorax seen. The cardiac mirtha houette size is within normal limits. The osseous structures are intact. There is generalized osseo us demineralization mild multilevel degenerative changes of the thoracic spine. IMPRESSION: Resolved right basilar opacity. No new focal consolidation. No acute cardiopulmonary pro cess.
[2017-09-30 09:57] LABS: Albumin 3.5 g/dL (3.5-5.0); Anion Gap 10 mmol/L; Blood Urea Nitrogen 17 mg/dL (7-17); Calcium 8.9 mg/dL (8.4-10.2); Carbon Dioxide 23 mmol/L (22-30); Chloride 104 mmol/L (98-107); Magnesium 1.7 mg/dL (1.6-2.3); Potassium 4.4 mmol/L (3.5-5.1); Sodium 137 mmol/L (137-145); Total Bilirubin 0.7 mg/dL (0.2-1.3); Total Protein 6.2 g/dL (6.3-8.2)
[2017-09-30 09:58] LABS: INR 1.1 (<1.2); Partial Thromboplastin Time 24.2 sec (22.0-30.0); Prothrombin Time 10.3 sec (9.0-12.0)
[2017-09-30 10:00] LABS: ALT 26 U/L (9-52); AST 25 U/L (14-36); Alkaline Phosphatase 66 U/L (38-126); Glucose 98 mg/dL (74-99)
[2017-09-30] MEDS ORDERED: guaiFENesin-Coden 100-10MG/5ML 10 ML CUP PO STA (10:45)
[2017-09-30 11:26] VITALS: TEMP 98.5
[2017-09-30 13:31] VITALS: RESP 18
--- NOTE | 2017-09-30 14:15 | ED ---
SOB HPI - General Chief Complaint: Shortness of Breath Stated Complaint: Hx PNEUMONIA Time Seen by Provider: 09/30/17 09:02 Source: patient Mode of arrival: wheelchair Limitations: no limitations - History of Present Illness Initial Comments: Patient complains of shortness of breath and cough. She had a recent diagnosis of pneumonia. She left the hospital AGAINST MEDICAL ADVICE. She has been taking antibiotics as an outpatient. While here, she did see cardiology. They cleared her for discharge before she left. Patient denies any pain or swelling in the arms or legs. She has no palpitations. She does still complain of a productive cough. She states that she is feeling very short of breath. - Related Data Home Medications Medication Instructions Recorded Confirmed Cyanocobalamin (Vitamin B-12) 1,000 mcg PO PC-LUNCH 09/27/17 09/30/17 [Vitamin B-12] Diltiazem HCl [Diltiazem 24Hr ER] 180 mg PO DAILY 09/27/17 09/30/17 HYDROcodone/APAP 5-325MG [[place] 0.5 tab PO HS PRN 09/27/17 09/30/17 5-325] Isosorbide Mononitrate ER [Imdur] 30 mg PO AC-BRKFST 09/27/17 09/30/17 Lisinopril [Prinivil] 20 mg PO DAILY 09/27/17 09/30/17 Lovastatin [Mevacor] 20 mg PO HS 09/27/17 09/30/17 Magnesium 200 mg PO HS 09/27/17 09/30/17 Nitroglycerin Sl Tabs [Nitrostat] 0.4 mg SUBLINGUAL Q5M PRN 09/27/17 09/30/17 cloNIDine HCL [Catapres] 0.1 mg PO DAILY 09/27/17 09/30/17 Previous Rx's Medication Instructions Recorded Aspirin 325 mg PO DAILY tab 09/28/17 Levofloxacin [Levaquin] 500 mg PO DAILY 10 Days #10 tab 09/28/17 Metoprolol Tartrate [Lopressor] 25 mg PO BID tab 09/28/17 guaiFENesin [Mucinex] 600 mg PO Q12HR 10 Days #20 09/28/17 tablet.er Allergies Allergy/AdvReac Type Severity Reaction Status Date / Time erythromycin base Allergy Rash/Hives Verified 09/30/17 09:12 meclizine Allergy Rash/Hives Verified 09/30/17 09:12 Review of Systems ROS Statement: Those systems with pertinent positive or pertinent negative responses have been documented in the HPI. ROS Other: All systems not noted in ROS Statement are negative. Past Medical History Past Medical History: Hyperlipidemia, Hypertension, Neurologic Disorder, Osteoarthritis (OA) Additional Past Medical History / Comment(s): pvc 's murmur lbbb cardiomyopathy atheroscleroris History of Any Multi-Drug Resistant Organisms: None Reported Past Surgical History: Adenoidectomy, Appendectomy, Cholecystectomy, Hysterectomy, Joint Replacement, Orthopedic Surgery, Tonsillectomy Additional Past Surgical History / Comment(s): lapband Past Anesthesia/Blood Transfusion Reactions: Postoperative Nausea & Vomiting ( PONV) Past Psychological History: No Psychological Hx Reported Smoking Status: Never smoker Past Alcohol Use History: None Reported Past Drug Use History: None Reported - Past Family History Father Family Medical History: Cancer Additional Family Medical History / Comment(s): Father had lymphosarcoma Mother Family Medical History: Coronary Artery Disease (CAD), Myocardial Infarction ([place] ) Additional Family Medical History / Comment(s): Mother of a [place] at the age of 66yrs. General Exam Limitations: no limitations General appearance: alert, in no apparent distress Head exam: Present: atraumatic, normocephalic, normal inspection Eye exam: Present: normal appearance, PERRL, EOMI. Absent: scleral icterus, conjunctival injection, periorbital swelling ENT exam: Present: normal exam, mucous membranes moist Neck exam: Present: normal inspection. Absent: tenderness, meningismus, lymphadenopathy Respiratory exam: Present: normal lung sounds bilaterally. Absent: respiratory distress, wheezes, rales, rhonchi, stridor Cardiovascular Exam: Present: regular rate, normal rhythm, normal heart sounds. Absent: systolic murmur, diastolic murmur, rubs, gallop, clicks GI/Abdominal exam: Present: soft, normal bowel sounds. Absent: distended, tenderness, guarding, rebound, rigid Extremities exam: Present: normal inspection, full ROM, normal capillary refill. Absent: tenderness, pedal edema, joint swelling, calf tenderness Back exam: Present: normal inspection Neurological exam: Present: alert, oriented X3, CN II-XII intact Psychiatric exam: Present: normal affect, normal mood Skin exam: Present: warm, dry, intact, normal color. Absent: rash Course Vital Signs 09/30/17 09/30/17 09/30/17 08:54 08:59 09:59 Temperature 100.4 F H Pulse Rate 88 64 63 Respiratory 20 15 16 Rate Blood Pressure 145/71 100/53 115/58 O2 Sat by Pulse 94 L 93 L 96 Oximetry 09/30/17 09/30/17 09/30/17 11:00 11:25 13:28 Temperature 98.5 F Pulse Rate 69 57 L Respiratory 17 18 Rate Blood Pressure 131/61 87/42 O2 Sat by Pulse 95 95 94 L Oximetry 09/30/17 14:16 Temperature Pulse Rate 51 L Respiratory 18 Rate Blood Pressure 90/45 O2 Sat by Pulse 96 Oximetry Medical Decision Making - Medical Decision Making Patient presents with shortness of breath. Chest x-ray shows resolution of her pneumonia. I obtained a troponin which is positive. I obtained a serial troponin, which has increased. She does have an elevated BNP. The differential is broad, could be related to CHF, viral upper respiratory infection or numerous other etiologies. I spoke with her doctor, and the patient will be admitted back to the hospital. - Lab Data Result diagrams: 09/30/17 09:20 09/30/17 09:20 Lab Results 09/30/17 09/30/17 09/30/17 Range/Units 09:20 09:20 09:20 WBC 5.3 (3.8-10.6) k/uL RBC 4.77 (3.80-5.40) m/uL Hgb 13.3 (11.4-16.0) gm/dL Hct 40.6 (34.0-46.0) % MCV 85.1 (80.0-100.0) fL MCH 27.8 (25.0-35.0) pg MCHC 32.7 (31.0-37.0) g/dL RDW 13.1 (11.5-15.5) % Plt Count 231 (150-450) k/uL Neutrophils % 65 % Lymphocytes % 24 % Monocytes % 6 % Eosinophils % 2 % Basophils % 1 % Neutrophils # 3.4 (1.3-7.7) k/uL Lymphocytes # 1.2 (1.0-4.8) k/uL Monocytes # 0.3 (0-1.0) k/uL Eosinophils # 0.1 (0-0.7) k/uL Basophils # 0.0 (0-0.2) k/uL PT (9.0-12.0) sec INR (<1.2) APTT (22.0-30.0) sec Sodium 137 (137-145) mmol/L Potassium 4.4 (3.5-5.1) mmol/L Chloride 104 (98-107) mmol/L Carbon Dioxide 23 (22-30) mmol/L Anion Gap 10 mmol/L BUN 17 (7-17) mg/dL Creatinine 0.72 (0.52-1.04) mg/dL Est GFR (CKD-EPI)AfAm >90 (>60 ml/min/1.73 sqM) Est GFR (CKD-EPI)NonAf 83 (>60 ml/min/1.73 sqM) Glucose 98 (74-99) mg/dL Calcium 8.9 (8.4-10.2) mg/dL Magnesium 1.7 (1.6-2.3) mg/dL Total Bilirubin 0.7 (0.2-1.3) mg/dL AST 25 (14-36) U/L ALT 26 (9-52) U/L Alkaline Phosphatase 66 (38-126) U/L Troponin I (0.000-0.034) ng/mL NT-Pro-B Natriuret Pep 825 pg/mL Total Protein 6.2 L (6.3-8.2) g/dL Albumin 3.5 (3.5-5.0) g/dL 09/30/17 09/30/17 09/30/17 Range/Units 09:20 09:20 10:30 WBC (3.8-10.6) k/uL RBC (3.80-5.40) m/uL Hgb (11.4-16.0) gm/dL Hct (34.0-46.0) % MCV (80.0-100.0) fL MCH (25.0-35.0) pg MCHC (31.0-37.0) g/dL RDW (11.5-15.5) % Plt Count (150-450) k/uL Neutrophils % % Lymphocytes % % Monocytes % % Eosinophils % % Basophils % % Neutrophils # (1.3-7.7) k/uL Lymphocytes # (1.0-4.8) k/uL Monocytes # (0-1.0) k/uL Eosinophils # (0-0.7) k/uL Basophils # (0-0.2) k/uL PT 10.3 (9.0-12.0) sec INR 1.1 (<1.2) APTT 24.2 (22.0-30.0) sec Sodium (137-145) mmol/L Potassium (3.5-5.1) mmol/L Chloride (98-107) mmol/L Carbon Dioxide (22-30) mmol/L Anion Gap mmol/L BUN (7-17) mg/dL Creatinine (0.52-1.04) mg/dL Est GFR (CKD-EPI)AfAm (>60 ml/min/1.73 sqM) Est GFR (CKD-EPI)NonAf (>60 ml/min/1.73 sqM) Glucose (74-99) mg/dL Calcium (8.4-10.2) mg/dL Magnesium (1.6-2.3) mg/dL Total Bilirubin (0.2-1.3) mg/dL AST (14-36) U/L ALT (9-52) U/L Alkaline Phosphatase (38-126) U/L Troponin I 0.041 H* 0.045 H* (0.000-0.034) ng/mL NT-Pro-B Natriuret Pep pg/mL Total Protein (6.3-8.2) g/dL Albumin (3.5-5.0) g/dL 09/30/17 14:18 Twelve-lead EKG shows ventricular rate 78 bpm, there is a left bundle-branch block, there is no ST elevation or depression, interpreted by me as sinus rhythm. Disposition Clinical Impression: Congestive heart failure Disposition: ADMITTED IP TO THIS HOSP Condition: Fair Referrals: Minerva Fernandez MD [Primary Care Provider] - 1-2 days Time of Disposition: 14:19
[2017-09-30 14:17] VITALS: BP 90/45; PULSE 51
[2017-09-30] MEDS ORDERED: NALOXONE 0.4 MG/ML 1 ML VIAL IV PRN (14:22)
[2017-09-30] MEDS ORDERED: HYDROcodone/APAP 5-325MG 1 EACH TAB PO PRN (14:24)
[2017-09-30] MEDS ORDERED: NON-FORMULARY DRUG (Lovastatin 20 MG) PO SCH (21:00)
[2017-09-30] MEDS ORDERED: guaiFENesin 600 MG TABLET.ER PO SCH (21:00)
[2017-09-30] MEDS ORDERED: METOPROLOL TARTRATE 25 MG TAB PO SCH (21:00)
[2017-09-30] MEDS ORDERED: FAMOTIDINE 20 MG TAB PO SCH (21:00)
[2017-10-01] MEDS ORDERED: ISOSORBIDE MONONITRATE ER 30 MG TAB.ER.24H PO SCH (07:30)
[2017-10-01] MEDS ORDERED: DILTIAZEM CD 180 MG CAP.ER.24H PO SCH (09:00)
[2017-10-01] MEDS ORDERED: LISINOPRIL 20 MG TAB PO SCH (09:00)
[2017-10-01] MEDS ORDERED: ASPIRIN 325 MG TAB PO SCH (09:00)
[2017-10-01] MEDS ORDERED: LEVOFLOXACIN 500 MG TAB PO SCH (09:00)
[2017-10-01] MEDS ORDERED: cloNIDine HCL 0.1 MG TAB PO SCH (09:00)
== END 2017-09-30 15:58 | disposition other institution (70) ==
LOC: EC 08:51
DX: I11.0 Hypertensive heart disease with heart failure (principal); I50.9 Heart failure, unspecified; E78.5 Hyperlipidemia, unspecified; I25.10 Atherosclerotic heart disease of native coronary artery without angina pectoris; Z79.899 Other long term (current) drug therapy; Z88.1 Allergy status to other antibiotic agents; Z88.8 Allergy status to other drugs, medicaments and biological substances
CPT/HCPCS: 36415; 71046; 80053; 83735; 83880; 84484; 85025; 85610; 85730; 93005; 99285

== ENCOUNTER → 2017-11-11 | Outpatient (CLI) | payer MEDICARE ==
[2017-11-11 09:24] LABS: HCT 40.6 % (34.0-46.0); HGB 13.5 gm/dL (11.4-16.0); MCHC 33.3 g/dL (31.0-37.0); Mean Platelet Volume 6.6; Platelet Count 287 k/uL (150-450); RBC 4.66 m/uL (3.80-5.40); RDW 13.8 % (11.5-15.5); WBC 6.5 k/uL (3.8-10.6)
[2017-11-11 09:51] LABS: ALT 21 U/L (9-52); AST 23 U/L (14-36); Albumin 3.6 g/dL (3.5-5.0); Alkaline Phosphatase 62 U/L (38-126); Anion Gap 11 mmol/L; Blood Urea Nitrogen 20 mg/dL (7-17); Calcium 9.4 mg/dL (8.4-10.2); Carbon Dioxide 22 mmol/L (22-30); Chloride 108 mmol/L (98-107); Cholesterol 175 mg/dL (<200); Glucose 97 mg/dL (74-99); HDL Cholesterol 67 mg/dL (40-60); LDL Cholesterol,Calculated 95 mg/dL (0-99); Magnesium 1.9 mg/dL (1.6-2.3); Potassium 4.8 mmol/L (3.5-5.1); Sodium 141 mmol/L (137-145); Total Bilirubin 0.5 mg/dL (0.2-1.3); Triglycerides 64 mg/dL (<150)
== END | disposition home or self-care (01) ==
LOC: LABWHC1 07:59
PROVIDERS: ATTEND Family Medicine
DX: E03.9 Hypothyroidism, unspecified (principal); I25.10 Atherosclerotic heart disease of native coronary artery without angina pectoris; I73.9 Peripheral vascular disease, unspecified
CPT/HCPCS: 36415; 80053; 80061; 83735; 84443; 85027

== ENCOUNTER → 2018-01-13 | Outpatient (CLI) | payer MEDICARE ==
--- NOTE | 2018-01-14 09:46 | MM ---
Reason for exam: screening (asymptomatic). Last mammogram was performed 3 years and 1 month ago. History: Patient is postmenopausal. Family history of premenopausal breast cancer in sister, premenopausal breast cancer in mother, and premenopausal breast cancer in grandmother. Physical Findings: A clinical breast exam by your physician is recommended on an annual basis and results should be correlated with mammographic findings. MG Screening Mammo w CAD Bilateral CC and MLO view(s) were taken. Prior study comparison: December 08, 2014, bilateral MG screening mammo w CAD. June 20, 2012, CAD bilateral diagnostic mammogram. There are scattered fibroglandular densities. Stable benign calcifications. There is no discrete abnormality. No significant changes when compared with prior studies. ASSESSMENT: Benign, BI-RAD 2 RECOMMENDATION: Routine screening mammogram of both breasts in 1 year.
== END | disposition home or self-care (01) ==
LOC: RADMAMWWP 12:26
PROVIDERS: ATTEND Family Medicine
DX: Z12.31 Encounter for screening mammogram for malignant neoplasm of breast (principal)
CPT/HCPCS: 77067